=== PATIENT | female | born 1995 | race African-American/Black ===

== ENCOUNTER 2017-11-12 22:26 | Emergency (ER) | payer SELFPAY ==
[~2017-11-12] VITALS: Ht 167.6 cm; Wt 76.0 kg
[2017-11-13 01:04] LABS: BASOPHILS % 0.3 % (0.0-2.0); EOSINOPHILS % 0.2 % (0.0-5.0); HEMOGLOBIN. 12.5 g/dL (12.0-16.0); LYMPHOCYTES % 12.4 % (20.0-50.0); MEAN CORPUSCULAR HEMOGLOBIN 29.7 pg (28.0-32.0); MEAN PLATELET VOLUME 6.9 fl (7.4-10.4); MONOCYTES % 9.1 % (2.0-8.0); PLATELET 436 x1000/uL (130-400); RED BLOOD CELL COUNT 4.23 mill/uL (4.2-5.4); RED CELL DISTRIBUTION WIDTH 14.2 % (11.6-14.6)
[2017-11-13 01:11] LABS: CHLORIDE 107 mEq/L (98-107)
[2017-11-13 01:13] LABS: HCG SCREEN NEGATIVE
[2017-11-13] MEDS ORDERED: BACITRACIN ZINC OINT UDPKT TOP ONE (01:45)
[2017-11-13] MEDS ORDERED: KETOROLAC 30MG/ML VIAL IM ONE (01:45)
[2017-11-13] MEDS ORDERED: LIDOCAINE HCL 1%/EPI 1:200,000 30 ML VIAL MC ONE (01:45)
[2017-11-13] MEDS ORDERED: ACETAMINOPHEN WITH CODEINE 300/30MG TABLET PO ONE (01:45)
[2017-11-13] MEDS ORDERED: AMOXICILLIN 500 MG CAPSULE PO ONE (02:00)
[2017-11-13 03:30] VITALS: BP 131/82
== END 2017-11-13 03:32 | disposition home or self-care (01) ==
LOC: ER 22:26
DX: L02.01 Cutaneous abscess of face (principal); R03.0 Elevated blood-pressure reading, without diagnosis of hypertension; J45.909 Unspecified asthma, uncomplicated; Z98.890 Other specified postprocedural states
CPT/HCPCS: 36415; 70360; 80053; 84703; 85025; 96372; 99285; J1885; Z7610